=== PATIENT | male | born 1985 | race Asian ===

== ENCOUNTER 2018-09-29 07:32 | Day surgery (SDC) | payer BC ==
[~2018-09-29] VITALS: Ht 172.7 cm; Wt 75.4 kg
[~2018-09-29 07:32] MED LIST: NO MEDS
[2018-09-29 08:01] VITALS: Ht 172.7 cm; Wt 75.4 kg
[2018-09-29 10:03] VITALS: BP 113/64; PULSE 60; RESP 16
[2018-09-29] MEDS ORDERED: MIDAZOLAM 1 MG/ML 2 ML INJ ONE ×2 (10:34)
[2018-09-29] MEDS ORDERED: FENTAnyl 50 MCG/ML VIAL ONE (10:35)
[2018-09-29 10:56] VITALS: BP 112/60; RESP 16
== END 2018-09-29 15:24 | disposition home or self-care (01) ==
LOC: GIL 07:32
PROVIDERS: ATTEND Internal Medicine Gastroenterology
DX: K92.1 Melena (principal); K64.4 Residual hemorrhoidal skin tags
CPT/HCPCS: 45378; 88305; J2250; J3010; Z7610